=== PATIENT | female | born 1975 | race Caucasian/White ===

== ENCOUNTER 2019-08-28 04:07 | Inpatient (IN) | payer BC ==
[~2019-08-28] VITALS: Ht 165.1 cm; Wt 77.1 kg
[2019-08-28] MEDS ORDERED: LR 1,000 ML IV SCH (04:52)
[2019-08-28] MEDS ORDERED: OXYTOCIN/0.9 % SODIUM CHLORIDE 1,000 ML IV SCH ×2 (04:52→05:41)
[2019-08-28] MEDS ORDERED: OXYTOCIN/0.9 % SODIUM CHLORIDE 1,000 ML IV ONE ×2 (05:41→06:26)
[2019-08-28] MEDS ORDERED: HYDROmorphone 1 MG INJ. 1 MG/ML AMPUL IVP STA (05:43)
[2019-08-28] MEDS ORDERED: DIPH-TET-PERTUS Vaccine 0.5 ML VIAL (ADACEL) I.M. PRN (05:45)
[2019-08-28] MEDS ORDERED: HYDROCORTISONE 0.5%, 28.35 GM TOPICAL CREAM TP PRN (05:45)
[2019-08-28] MEDS ORDERED: OXYCODONE/ACETAMINOPHEN 5-325 TABLET PO PRN (05:45)
[2019-08-28] MEDS ORDERED: MEASLES,MUMPS&RUBELLA VACC/PF 12500 UNIT/0.5 ML VIAL SUBQ PRN (05:45)
[2019-08-28] MEDS ORDERED: SENNOSIDES/DOCUSATE SODIUM 1 TAB TABLET(SENOKOT-S) PO PRN (05:45)
[2019-08-28] MEDS ORDERED: LANOLIN 7 GM OINT. TP PRN (05:45)
[2019-08-28] MEDS ORDERED: DERMOPLAST SPRAY TP PRN (05:45)
[2019-08-28] MEDS ORDERED: ANUSOL 1 EA SUPP.RECT (PREPARATION H) RC PRN (05:45)
[2019-08-28] MEDS ORDERED: HYDROcodone/ACETAMIN 5-325 MG TAB (NORCO/ VICODIN) PO PRN (05:45)
[2019-08-28] MEDS ORDERED: METHYLERGONOVINE MALEATE 0.2 MG TABLET PO PRN (05:45)
[2019-08-28] MEDS ORDERED: WITCH HAZEL LEAF 1 MED.PAD MED.PAD TP PRN (05:45)
[2019-08-28] MEDS ORDERED: RHO(D) IMMUNE GLOBULIN/MALTOSE 1500 UNITS/1.3 ML (WINHRO) IM PRN (05:45)
[2019-08-28] MEDS ORDERED: HYDROmorphone 2 MG/ML VIAL ONE (05:46)
[2019-08-28 05:50] LABS: BASOPHILS % (AUTO) 0.4 % (0.0-2.0); EOSINOPHILS # (AUTO) 0.1 K/uL (0.0-0.4); EOSINOPHILS % (AUTO) 0.9 % (0.0-4.0); HEMATOCRIT 33.2 % (36-48); HEMOGLOBIN 11.3 g/dL (12.0-16.0); LYMPHOCYTES % (AUTO) 26.4 % (20.5-51.5); MEAN CORPUSCULAR HEMOGLOBIN 29 pg (27-31); MEAN CORPUSCULAR HGB CONC 34 % (32-36); MEAN CORPUSCULAR VOLUME 86 fL (79.0-98.0); MONOCYTES # (AUTO) 0.5 K/uL (0.0-1.0); MONOCYTES % (AUTO) 4.4 % (1.7-9.3); NEUTROPHILS # (AUTO) 7.8 K/uL (1.8-7.7); NEUTROPHILS % (AUTO) 67.9 % (40.0-70.0); PLATELET COUNT (AUTO) 242 K/uL (130-430); RED BLOOD CELL COUNT(AUTO) 3.86 MIL/uL (4.2-6.2); RED CELL DISTRIBUTION WIDTH 13.6 % (9.0-15.0); WHITE BLOOD COUNT (AUTO) 11.5 K/uL (4.8-10.8)
[2019-08-28 09:56] VITALS: BP_SYST 144
[2019-08-28] MEDS: IBUPROFEN 600 MG TABLET PO SCH ×2 (12:05→18:00)
[2019-08-28] MEDS ORDERED: RHO(D) IMMUNE GLOBULIN/MALTOSE 1500 UNITS/1.3 ML (WINHRO) INJ ONE (17:30)
[2019-08-28] MEDS: DOCUSATE SODIUM 100 MG CAPSULE PO PRN (20:36)
[2019-08-28] MEDS ORDERED: TEMAZEPAM 15 MG CAPSULE PO PRN (21:00)
[2019-08-29] MEDS: IBUPROFEN 600 MG TABLET PO SCH ×4 (00:04→18:00)
[2019-08-29 07:40] LABS: BASOPHILS % (AUTO) 0.4 % (0.0-2.0); EOSINOPHILS # (AUTO) 0.1 K/uL (0.0-0.4); EOSINOPHILS % (AUTO) 0.8 % (0.0-4.0); LYMPHOCYTES # (AUTO) 1.9 K/uL (1.0-5.5); MEAN CORPUSCULAR HEMOGLOBIN 30 pg (27-31); MEAN CORPUSCULAR HGB CONC 34 % (32-36); MEAN CORPUSCULAR VOLUME 87 fL (79.0-98.0); MONOCYTES # (AUTO) 0.5 K/uL (0.0-1.0); MONOCYTES % (AUTO) 4.8 % (1.7-9.3); NEUTROPHILS # (AUTO) 8.8 K/uL (1.8-7.7); PLATELET COUNT (AUTO) 180 K/uL (130-430); RED BLOOD CELL COUNT(AUTO) 2.23 MIL/uL (4.2-6.2); RED CELL DISTRIBUTION WIDTH 13.7 % (9.0-15.0); WHITE BLOOD COUNT (AUTO) 11.4 K/uL (4.8-10.8)
[2019-08-29 07:49] LABS: HEMATOCRIT 19.4 % (36-48); HEMOGLOBIN 6.6 g/dL (12.0-16.0)
[2019-08-29] MEDS: FERROUS SULFATE 325 MG TABLET.DR PO SCH ×4 (09:15→20:50)
[2019-08-29] MEDS: DOCUSATE SODIUM 100 MG CAPSULE PO PRN (20:50)
[2019-08-30] MEDS: IBUPROFEN 600 MG TABLET PO SCH ×4 (00:30→18:00)
[2019-08-30] MEDS: DOCUSATE SODIUM 100 MG CAPSULE PO PRN (06:20)
[2019-08-30 08:10] LABS: BASOPHILS % (AUTO) 0.3 % (0.0-2.0); EOSINOPHILS # (AUTO) 0.1 K/uL (0.0-0.4); EOSINOPHILS % (AUTO) 1.3 % (0.0-4.0); LYMPHOCYTES # (AUTO) 1.6 K/uL (1.0-5.5); LYMPHOCYTES % (AUTO) 19.3 % (20.5-51.5); MEAN CORPUSCULAR HEMOGLOBIN 30 pg (27-31); MEAN CORPUSCULAR HGB CONC 34 % (32-36); MEAN CORPUSCULAR VOLUME 87 fL (79.0-98.0); MONOCYTES # (AUTO) 0.4 K/uL (0.0-1.0); MONOCYTES % (AUTO) 4.6 % (1.7-9.3); NEUTROPHILS # (AUTO) 6.1 K/uL (1.8-7.7); NEUTROPHILS % (AUTO) 74.5 % (40.0-70.0); PLATELET COUNT (AUTO) 192 K/uL (130-430); RED BLOOD CELL COUNT(AUTO) 2.31 MIL/uL (4.2-6.2); RED CELL DISTRIBUTION WIDTH 13.7 % (9.0-15.0); WHITE BLOOD COUNT (AUTO) 8.1 K/uL (4.8-10.8)
[2019-08-30 08:17] LABS: HEMATOCRIT 20.1 % (36-48); HEMOGLOBIN 6.9 g/dL (12.0-16.0)
[2019-08-30] MEDS: FERROUS SULFATE 325 MG TABLET.DR PO SCH (10:14)
== END 2019-08-30 20:10 | disposition home or self-care (01) | DRG 807 ==
LOC: OBSVTOIN 04:07 → SPU 04:07
PROVIDERS: ADMIT Specialist; ATTEND Specialist
PROC: 3E0334Z Introduction of Serum, Toxoid and Vaccine into Peripheral Vein, Percutaneous Approach (ICD-10-PCS; principal; 2019-08-28)
PROC: 10E0XZZ Delivery of Products of Conception, External Approach (ICD-10-PCS; 2019-08-28)
PROC: 0HQ9XZZ Repair Perineum Skin, External Approach (ICD-10-PCS; 2019-08-28)
DX: O34.211 Maternal care for low transverse scar from previous cesarean delivery (principal); Z37.0 Single live birth; O26.893 Other specified pregnancy related conditions, third trimester; O69.89X0 Labor and delivery complicated by other cord complications, not applicable or unspecified; Z67.41 Type O blood, Rh negative; Z3A.36 36 weeks gestation of pregnancy; O70.0 First degree perineal laceration during delivery
CPT/HCPCS: 36415; 82962; 85025; 86592; 86870; 86886; 86900; 86901; 87536; 88307; 90715; J1170; J2590; J2790